=== PATIENT | female | born 1960 | race Caucasian/White ===

== ENCOUNTER 2017-08-17 15:49 | Observation (INO) ==
--- NOTE | 2017-08-17 17:58 | Internal Med History&Physical ---
Date of Encounter: 08/17/17 Time of Encounter: 17:55 Assessment and Plan (1) CHF (congestive heart failure) Current visit: Yes Status: Acute Patient has symptoms suggestive of congestive heart failure exertional shortness of breath PND leg edema with a high BNP will obtain 2-D echo and consult cardiology Qualifiers: Heart failure type: unspecified Heart failure chronicity: acute Qualified Code(s): I50.9 - Heart failure, unspecified (2) Diabetes 1.5, managed as type 2 Current visit: Yes Status: Chronic Chronic resume home medication and place on sliding scale regular likely not well-controlled patient has not been on medication since December last year (3) Chest pain Current visit: No Status: Acute Patient with recurrent chest pain for about 3 months suggestive of cardiac chest pain need further cardiac evaluation with trend troponin scheduled for nuclear stress test tomorrow and I will consult cardiology as well Qualifiers: Chest pain type: precordial pain Qualified Code(s): R07.2 - Precordial pain (4) Hyperglycemia Current visit: No Status: Acute Diabetes with hyperglycemia (5) Morbid obesity Current visit: Yes Status: Chronic Chronic due to excessive caloric intake (6) Peroneal DVT (deep venous thrombosis) Current visit: Yes Status: Chronic Patient had history of DVT but has not been taking her medication due to social and transpsortation isuues CTA of the chest shows no evidence of pulmonary embolism Qualifiers: Laterality: unspecified laterality Qualified Code(s): I82.499 - Acute embolism and thrombosis of other specified deep vein of unspecified lower extremity (7) HTN (hypertension) Current visit: Yes Status: Chronic Chronic resume home medication Qualifiers: Hypertension type: essential hypertension Qualified Code(s): I10 - Essential (primary) hypertension (8) Hyperlipidemia Current visit: Yes Status: Chronic Chronic and recheck in a.m. Qualifiers: Hyperlipidemia type: pure hypercholesterolemia Qualified Code(s): E78.00 - Pure hypercholesterolemia, unspecified; E78.0 - Pure hypercholesterolemia Internal Medicine - H&P: HPI Chief complaint: chest pain and sob Admitted From: Intrahospital Transfer Plans for Post Hospital Care: Home History of present illness: Ms. Mcclani is a 57 year old female Patient with history of CK D, LBBB, congestive heart failure, DVT pulmonary embolism in the past, morbid obesity, CAD, diabetes, GERD, high cholesterol and hypertension patient has not been taking her medication since December because she had difficulty with transportation has has not had medication refill. Patient having recurrent chest pain for about 3 months describes a tightness and pressure mostly with exertion also increased shortness of breath with exertion with some leg swelling patient was seen by primary physician yesterday with a left leg infection was sent to wound care and placed on Keflex and has some labs drawn patient was called back back call because apparently had troponin was elevated them to go to the emergency room she went to [facility] emergency room CTA was done that showed no evidence of a pulmonary embolism there was no pneumonia BNP was elevated at 677 chest x ray and cta was unremarkable patient was then transferred here for further cardiac evaluation. Patient has never had a cardiac catheter but she says had a stress test at [facility] about a year ago no carduac cath was done . [place] trop[place] was normal. Past Med Surg Social Fam HX - Past Medical History Medical history: arthritis, coronary artery disease, DVT, diabetes, GERD, hyperlipidemia, hypertension, pulmonary embolus, other Psychiatric history: anxiety - Past Surgical History Surgical History: cholecystectomy - Social History Smoking Status: Never smoker Smokeless Tobacco Status: No Alcohol use: none Drug use: none - Family History Father Hx Family Cancer: Yes Mother Living Status: Hx Family Respiratory Disorders: Yes Hx Family Cancer: Yes (breast) Internal Medicine - H&P: Meds Aspirin [Lo-Dose Aspirin EC] 81 mg PO DAILY 08/17/17 [History] Docusate [Colace] 100 mg PO DAILY 08/17/17 [History] Furosemide [Lasix] 20 mg PO DAILY 08/17/17 [History] Gabapentin [Neurontin] 300 mg PO TID 08/17/17 [History] Insulin ASPART [Novolog Flexpen] 10 unit SQ TID 08/17/17 [History] Insulin Glargine,Hum.rec.anlog [Lantus Solostar] 32 unit SQ HS 08/17/17 [History ] Lisinopril [Zestril] 20 mg PO DAILY 08/17/17 [History] Loratadine [Claritin] 10 mg PO DAILY 08/17/17 [History] Omeprazole [PriLOSEC] 20 mg PO DAILY 08/17/17 [History] Pravastatin Sodium [Pravachol] 40 mg PO DAILY 08/17/17 [History] Ranitidine HCl [Heartburn Relief] 150 mg PO DAILY 08/17/17 [History] Rivaroxaban [Xarelto] 15 mg PO 1700 08/17/17 [History] cephALEXin [Keflex] 500 mg PO QID 08/17/17 [History] metFORMIN [Glucophage] 500 mg PO TIDWM 08/17/17 [History] 3 Allergy/AdvReac Type Severity Reaction Status Date / Time No Known Allergies Allergy Verified 06/25/17 21:14 All Systems PM: A 10-system review of systems was performed and is negative for pertinent findings except as documented above in the HPI. - Eye Eye exam: Present: PERRL, conjuntiva pink, sclera anicteric Pupils: Present: PERRL - Neck Neck exam general surgery: Present: supple, trachea midline. Absent: lymphadenopathy - Respiratory Respiratory exam: Present: rales, rhonchi - Cardiovascular Cardiovascular exam: Present: RRR, systolic murmur - GI/Abdominal GI/Abdominal exam: Present: normal bowel sounds, soft, no peritoneal signs. Absent: distended, tenderness - Extremities Exam Extremities exam: Present: pedal edema
[2017-08-17] MEDS ORDERED: Naloxone 0.4 MG/ML INJ IVP PRN (18:18)
[2017-08-17] MEDS ORDERED: Acetaminophen 325 MG TABLET PO PRN (18:18)
[2017-08-17] MEDS ORDERED: Dextrose Gel 15 GM/37.5 ML TUBE PO PRN ×2 (18:22)
[2017-08-17] MEDS ORDERED: D5% in Water 1,000 ML IVC PRN (18:22)
[2017-08-17] MEDS ORDERED: *HR* Dextrose 50 % in Water (Syg) 50 ML SYRINGE IVP PRN (18:22)
[2017-08-17] MEDS: Insulin DETEMIR 100 UNIT/ML X5UNITS SQ SCH (21:00)
[2017-08-17] MEDS: Insulin LISPRO 300 UNITS/3 ML VIAL SQ SCH (21:00)
[2017-08-17] MEDS: traMADol 50 MG TABLET PO PRN (21:00)
[2017-08-17] MEDS: Furosemide 40 MG/4 ML VIAL IVP SCH (21:00)
[2017-08-17] MEDS: Gabapentin 300 MG CAPSULE PO SCH (21:00)
[2017-08-18] MEDS: Piperacillin/Tazobactam 3.375 GM in 0.9 % Sodium Chloride Mini Bag 100 ML IVPB SCH ×4 (00:18→23:46)
[2017-08-18 00:46] LABS: Hematocrit 41.6 % (35.3-44.9); Hemoglobin 12.7 g/dL (11.5-15.4); Mean Corpuscular HGB Conc 30.5 g/dL (31.6-35.5); Mean Corpuscular Hemoglobin 24.2 pg (28.0-33.3); Mean Corpuscular Volume 79.2 fL (83.0-100.0); Mean Platelet Volume 10.2 fL (9.4-12.4); Platelet Count 260 K/mcL (140-400); Red Blood Count 5.25 M/mcL (3.82-4.97); Red Cell Distribution Width 15.5 % (11.5-14.5)
[2017-08-18 01:08] LABS: Alanine Aminotransferase 8 Units/L (7-52); Albumin 3.2 g/dL (3.5-5.7); Albumin/Globulin Ratio 1.1 (1.1-2.2); Alkaline Phosphatase 90 Units/L (34-104); Aspartate Amino Transferase 10 Units/L (13-39); BUN/Creatinine Ratio 20 (6-26); Bilirubin,Total 0.6 mg/dL (0.3-1.0); Blood Urea Nitrogen 17 mg/dL (6-20); Carbon Dioxide 29 mEq/L (23-29); Chloride 101 mEq/L (98-107); Chol/HDL Ratio 4.1 (0-4.9); Cholesterol 159 mg/dL (< 200); Glucose 216 mg/dL (70-105); HDL Cholesterol 39 mg/dL (40-59); LDL Cholesterol,Calculated 92 mg/dL (0-99); Magnesium 1.7 mg/dL (1.6-2.6); Osmolality,Calculated 294 (280-300); Potassium 3.3 mEq/L (3.5-5.1); Sodium 138 mEq/L (136-145); Total Protein 6.2 g/dL (6.4-8.9); Triglycerides 139 mg/dL (< 150); eGFR For African Americans > 60 (> 60); eGFR For Non-African Americans > 60 (> 60)
[2017-08-18] MEDS ORDERED: Regadenoson 0.4 MG/5 ML SYRINGE IVP ONE (06:13)
[2017-08-18 08:26] LABS: Estimated Average Glucose 272 mg/dl; Hemoglobin A1C 11.1 %
[2017-08-18] MEDS ORDERED: Perflutren Lipid Microsphere 1.3 ML in 0.9 % Sodium Chloride 8.7 ML IVP ONE (08:35)
[2017-08-18] MEDS: Insulin LISPRO 300 UNITS/3 ML VIAL SQ SCH ×4 (09:32→21:52)
[2017-08-18] MEDS: Gabapentin 300 MG CAPSULE PO SCH ×3 (09:35→21:52)
[2017-08-18] MEDS: Loratadine 10 MG TABLET PO SCH (09:35)
[2017-08-18] MEDS: Lisinopril 20 MG TABLET PO SCH (09:36)
[2017-08-18] MEDS: Aspirin Enteric Coated 81 MG Tablet PO SCH (09:36)
[2017-08-18] MEDS: Famotidine 20 MG TABLET PO SCH (09:39)
[2017-08-18] MEDS: Furosemide 40 MG/4 ML VIAL IVP SCH ×2 (09:41→17:43)
--- NOTE | 2017-08-18 10:17 | Cardiology Consult Note ---
Date of Encounter: 08/18/17 Time of Encounter: 10:14 Assessment and Plan (1) Chest pain Current Visit: Yes Status: Acute Pt reports intermittent chest pain over past 3 months, worse on exertion. Troponin negative then 0.04, 0.05 x 2. Stress test was ordered, but cancelled by cardiology until echo results and records are received. Pt reports having an echo and LHC at [place] last year. Request records. LBBB on EKG--not new. Further recommendations to follow. Qualifiers: Chest pain type: unspecified Qualified Code(s): R07.9 - Chest pain, unspecified (2) CHF (congestive heart failure) Current Visit: Yes Status: Acute Pt reports hx of CHF--uncertain type. BNP 677. CXR no acute findings. Symptoms of worsening dyspnea and LE edema. Reports being out of Lasix from March until recently due to transportation issues. Also admits to excess fluid intake >2L/day. Agree with IV Lasix--40mg BID. Recommend strict I/Os, daily weights, Na and fluid restriction. K 3.3--replace. TTE pending. Requesting records from [place] as well. Qualifiers: Heart failure type: unspecified Heart failure chronicity: acute Qualified Code(s): I50.9 - Heart failure, unspecified (3) Elevated troponin Current Visit: Yes Status: Acute Troponins 0.04, 0.05 x 2 in setting of CHF. Suspect demand ischemia, nondiagnostic for ACS. TTE pending. Discussion w patient/family: The assessment and plan as outlined above was discussed with the patient and/or family members who expressed understanding and agreement. All questions were answered. Thank you for involving us in the care of your patient. Please call with any questions. I will discuss all the above with Dr. Rivera and make changes as necessary. History of Present Illness Consult date: 08/18/17 Requesting physician: Fidel Dong Consult reason: elevated troponin, chest pain, CHF Chief complaint: chest pain, dyspnea, LE edema History of present illness: Ms. Mcclain is a 57 year old female with PMH of CKD, LBBB, congestive heart failure (unclear type), DVT/PE in the past, morbid obesity, diabetes, GERD, HLD , HTN. Pt has not been taking her medications since December because she has difficulty with transportation. She presented with complaints of having recurrent chest pain for 3 months, intermittent, describes a tightness and pressure mostly with exertion. Reports increased shortness of breath with exertion, BLE edema and weight gain. BNP 677. Negative CTA. Per pt, she had an echo and LHC at [place] last year. She reports knowing she has CHF, but unsure of type or EF. Troponin 0.04, 0.05 x 2. TTE pending. Cardiology consulted for further recommendations. Past Med Surg Social Fam HX - Past Medical History Medical history: arthritis, coronary artery disease, DVT, diabetes, GERD, hyperlipidemia, hypertension, pulmonary embolus, other Psychiatric history: anxiety - Past Surgical History Surgical History: cholecystectomy - Social History Smoking Status: Never smoker Smokeless Tobacco Status: No Alcohol use: none Drug use: none - Family History Father Hx Family Cancer: Yes Mother Living Status: Hx Family Respiratory Disorders: Yes Hx Family Cancer: Yes (breast) Medications and Allergies Aspirin [Lo-Dose Aspirin EC] 81 mg PO DAILY 08/17/17 [History] Docusate [Colace] 100 mg PO DAILY 08/17/17 [History] Furosemide [Lasix] 20 mg PO DAILY 08/17/17 [History] Gabapentin [Neurontin] 300 mg PO TID 08/17/17 [History] Insulin ASPART [Novolog Flexpen] 10 unit SQ TID 08/17/17 [History] Insulin Glargine,Hum.rec.anlog [Lantus Solostar] 15 unit SQ HS 08/17/17 [History ] Lisinopril [Zestril] 20 mg PO DAILY 08/17/17 [History] Loratadine [Claritin] 10 mg PO DAILY 08/17/17 [History] Omeprazole [PriLOSEC] 20 mg PO DAILY 08/17/17 [History] Pravastatin Sodium [Pravachol] 40 mg PO DAILY 08/17/17 [History] Ranitidine HCl [Heartburn Relief] 150 mg PO DAILY 08/17/17 [History] Rivaroxaban [Xarelto] 15 mg PO 1700 08/17/17 [History] cephALEXin [Keflex] 500 mg PO QID 08/17/17 [History] Metformin HCl [Metformin HCl ER] 1,500 mg PO DAILY 08/18/17 [History] Polyethylene Glycol 3350 [MiraLAX Powder Bulk 17.9 Oz] 1 scoop PO DAILY [History] 3 Allergy/AdvReac Type Severity Reaction Status Date / Time No Known Allergies Allergy Verified 06/25/17 21:14 All Systems Review: The remainder of the systems were reviewed and are negative - Constitutional Constitutional: weight gain - Cardiovascular Cardiovascular: as per HPI, chest pain at rest, chest pain with exertion, dyspnea at rest, dyspnea on exertion, leg edema - Respiratory Respiratory: dyspnea Physical Examination Vital Signs, Last 4 Hours Temp Pulse Resp BP Pulse Ox 08/18/17 06:42 97.8 F 63 16 129/80 95 Vital Signs Temp Pulse Resp BP Pulse Ox 08/18/17 06:42 97.8 F 63 16 129/80 95 08/18/17 04:06 97.7 F 81 16 141/87 95 08/18/17 00:00 97.8 F 66 16 129/70 96 08/17/17 20:53 98.4 F 79 16 177/117 95 08/17/17 20:45 95 Intake and Output 08/17/17 08/18/17 08/18/17 23:59 07:59 15:59 Intake Total 240 / 240 100 / 100 Balance 240 / 240 100 / 100 Intake: IV Fluids 100 / 100 Zosyn 3.375 GM In 0.9 % Sodium 100 / 100 Chloride (Mini-Bag +) 100 ML @ 25 mls/hr IVPB Q8HR [facility] Rx#: [id number] Oral 240 / 240 Other: Meal Dinner Percent of Meal Consumed 100% Weight 151.046 kg Blood Glucose* 319 120 General: Conversant, No Apparent Distress HEENT: Atraumatic, Normocephaly, Mucus Membranes Moist Neck: No JVD, Normal carotid pulses Cardiac: Reg Rate and Rhythm, No Murmur Lungs: Other (diminished) Neuro: Alert and responsive, No focal deficits noted Abdomen: Soft, Non-Tender Skin: No rashes noted on visualized skin Musculoskeletal: No Chest Wall Tenderness Extremities: Other (mild BLE edema) Results 08/18/17 00:11 08/18/17 00:11 Lab Results 08/17/17 08/18/17 08/18/17 19:17 00:11 00:11 WBC 5.4 Hgb 12.7 Hct 41.6 Plt Count 260 Sodium Potassium Chloride Carbon Dioxide BUN Creatinine Glucose Calcium Magnesium Total Bilirubin AST ALT Alkaline Phosphatase Troponin I 0.04 H* 0.05 H* 08/18/17 08/18/17 00:11 06:20 WBC Hgb Hct Plt Count Sodium 138 Potassium 3.3 L Chloride 101 Carbon Dioxide 29 BUN 17 Creatinine 0.85 Glucose 216 H Calcium 9.0 Magnesium 1.7 Total Bilirubin 0.6 AST 10 L ALT 8 Alkaline Phosphatase 90 Troponin I 0.05 H* Short CBC 08/18/17 Range/Units 00:11 WBC 5.4 (4.3-11.1) K/mcL Hgb 12.7 (11.5-15.4) g/dL Hct 41.6 (35.3-44.9) % Plt Count 260 (140-400) K/mcL BMP 08/18/17 Range/Units 00:11 Sodium 138 (136-145) mEq/L Potassium 3.3 L (3.5-5.1) mEq/L Chloride 101 (98-107) mEq/L Carbon Dioxide 29 (23-29) mEq/L BUN 17 (6-20) mg/dL Creatinine 0.85 (0.60-1.20) mg/dL Glucose 216 H (70-105) mg/dL Calcium 9.0 (8.6-10.3) mg/dL Cardiac Enzymes 08/18/17 08/18/17 08/17/17 Range/Units 06:20 00:11 19:17 Troponin I 0.05 H* 0.05 H* 0.04 H* (< 0.04) ng/mL Liver Function 08/18/17 Range/Units 00:11 Total Bilirubin 0.6 (0.3-1.0) mg/dL AST 10 L (13-39) Units/L ALT 8 (7-52) Units/L Alkaline Phosphatase 90 (34-104) Units/L Albumin 3.2 L (3.5-5.7) g/dL Active Medications Acetaminophen (Tylenol) 650 mg PO Q6HR PRN PRN Reason: Mild Pain/Fever Stop: 02/16/18 18:19 Aspirin (Aspirin Ec) 81 mg PO DAILY [facility] Stop: 02/17/18 09:01 Last Admin: 08/18/17 09:36 Dose: 81 mg Atorvastatin Calcium (Lipitor) 10 mg PO DAILY [facility] Stop: 02/17/18 09:01 Last Admin: 08/18/17 09:38 Dose: 10 mg Dextrose/Water (Dextrose 50% (Syg)) 25 ml IVP AD PRN PRN Reason: Hypoglycemia Stop: 02/16/18 18:23 Docusate Sodium (Colace) 100 mg PO DAILY [facility] PRN Reason: Protocol Stop: 02/17/18 09:01 Last Admin: 08/18/17 09:38 Dose: 100 mg Famotidine (Pepcid) 20 mg PO DAILY [facility] Stop: 02/17/18 09:01 Last Admin: 08/18/17 09:39 Dose: 20 mg Furosemide (Lasix) 40 mg IVP BIDDIURETIC [facility] Stop: 02/16/18 21:01 Last Admin: 08/18/17 09:41 Dose: 40 mg Gabapentin (Neurontin) 300 mg PO TID [facility] Stop: 02/16/18 21:01 Last Admin: 08/18/17 09:35 Dose: 300 mg Glucagon (Glucagen) 1 mg IM ONCE PRN PRN Reason: Hypoglycemia Stop: 02/16/18 18:23 Glucose (Gluctose) 15 gm PO ONCE PRN PRN Reason: Hypoglycemia Stop: 02/16/18 18:23 Glucose (Gluctose) 30 gm PO ONCE PRN PRN Reason: Hypoglycemia Stop: 02/16/18 18:23 Dextrose (Dextrose 5%) 1,000 mls @ 100 mls/hr IVC .Q10H PRN PRN Reason: HYPOGLYCEMIA Stop: 02/16/18 18:23 Piperacillin Sod/Tazobactam (Sod 3.375 gm/ Sodium Chloride) 100 mls @ 25 mls/ hr IVPB Q8HR [facility] Stop: 02/17/18 00:01 Last Admin: 08/18/17 09:39 Dose: 25 mls/hr Insulin Detemir (Levemir) 32 unit SQ HS [facility] Stop: 02/16/18 21:01 Last Admin: 08/17/17 21:00 Dose: 32 unit Insulin Human Lispro (Humalog) 0 units SQ HS [facility] PRN Reason: Protocol Stop: 02/16/18 21:01 Last Admin: 08/17/17 21:00 Dose: 6 units Insulin Human Lispro (Humalog) 0 units SQ TIDAC [facility] PRN Reason: Protocol Stop: 02/17/18 07:31 Last Admin: 08/18/17 09:32 Dose: Not Given Lisinopril (Zestril) 20 mg PO DAILY [facility] PRN Reason: Protocol Stop: 02/17/18 09:01 Last Admin: 08/18/17 09:36 Dose: 20 mg Loratadine (Claritin) 10 mg PO DAILY [facility] Stop: 02/17/18 09:01 Last Admin: 08/18/17 09:35 Dose: 10 mg Naloxone HCl (Narcan) 0.4 mg IVP Q2MIN PRN PRN Reason: SEE COMMENTS Stop: 02/16/18 18:19 Omeprazole (Prilosec) 20 mg PO DAILY@0730 [facility] PRN Reason: Protocol Stop: 02/17/18 07:31 Last Admin: 08/18/17 09:36 Dose: 20 mg Rivaroxaban (Xarelto) 15 mg PO 1700 [facility] Stop: 02/17/18 17:01 Tramadol HCl (Ultram) 50 mg PO Q6HR PRN PRN Reason: Moderate Pain Stop: 02/16/18 18:19 Last Admin: 08/17/17 21:00 Dose: 50 mg - Imaging and Cardiology Echo: pending - EKG Interpretation EKG results cardiology: personally reviewed (SR, LBBB), other (12 hr tele AVG HR 82, SR) Consult Discharge Plan - Plan Referrals: Lina Paulino, [employer] [Primary Care Provider] -
--- NOTE | 2017-08-18 13:58 | Event Note ---
Date of Encounter: 08/18/17 Time of Encounter: 13:55 - Cardiology Event Note Echo resulted-- LVEF 20-25%. Mildly dilated left ventricle. Mild concentric left ventricular hypertrophy. There is no LV thrombus. Mildly dilated right ventricle. Mild right ventricular hypokinesis. Mild tricuspid regurgitation. Moderate pulmonary hypertension. Estimated RVSP is 50 mmHg. ICMP vs NICMP. [place] records received--Echo 05/2016 EF 25-30%. Pt had previously reported having a LHC. On record review had aortography with runoff. PET stress test was ordered for her CMP, but results were not on faxed documents. Results requested. Reduced EF is not a new finding, but does not appear pt has had a LHC to evaluate coronary arteries. Given presentation with chest pain over past 3 months, worse on exertion and borderline troponins, recommend proceeding with LHC tomorrow. R/B/A discussed and pt agrees to proceed in AM.
[2017-08-18] MEDS: Miconazole 2% ointment 114 GM TUBE TP SCH (16:05)
[2017-08-18] MEDS: Metoprolol XL (24 HR) Succ 25 MG TAB.ER.24H PO SCH (16:07)
[2017-08-18] MEDS ORDERED: *HR* Rivaroxaban 15 MG TABLET PO SCH (17:00)
--- NOTE | 2017-08-18 17:34 | Internal Med Progress Note ---
Date of Encounter: 08/18/17 Time of Encounter: 17:12 - Assessment and plan (1) Chest pain Current Visit: Yes Status: Acute Assessment and plan: Cardiology consult and left heart catheter planned in a.m. Qualifiers: Chest pain type: unspecified Qualified Code(s): R07.9 - Chest pain, unspecified (2) Elevated troponin Current Visit: Yes Status: Acute Assessment and plan: Troponin 0.04 and 0.05 times 2 Cardiology consult Obtained records from [facility]. Left heart cath in the a.m. (3) Diabetes 1.5, managed as type 2 Current Visit: Yes Status: Chronic Assessment and plan: Place on sliding scale regular insulin before meals and at bedtime. Patient has not been on medication since December 2016 per her report. (4) HTN (hypertension) Current Visit: Yes Status: Chronic Assessment and plan: Continue home medications Qualifiers: Hypertension type: essential hypertension Qualified Code(s): I10 - Essential (primary) hypertension (5) Hyperlipidemia Current Visit: Yes Status: Chronic Assessment and plan: LDL 92 VLDL 28 HDL 39 triglycerides 139 total cholesterol 159 Continue statin Qualifiers: Hyperlipidemia type: pure hypercholesterolemia Qualified Code(s): E78.00 - Pure hypercholesterolemia, unspecified; E78.0 - Pure hypercholesterolemia (6) Morbid obesity Current Visit: Yes Status: Chronic (7) Peroneal DVT (deep venous thrombosis) Current Visit: Yes Status: Chronic Assessment and plan: Patient with history of DVT but has not been taking her medication secondary to social and transportation issues CTA of the chest showed no evidence of pulmonary embolism Qualifiers: Laterality: unspecified laterality Qualified Code(s): I82.499 - Acute embolism and thrombosis of other specified deep vein of unspecified lower extremity (8) Diastolic CHF, chronic Current Visit: Yes Status: Acute Assessment and plan: LVEF 20-25%. Mildly dilated left ventricle. Mild concentric left ventricular hypertrophy and intermediate diastolic function. Atypical septal motion consistent with bundle branch block. There is no LV thrombus. Mildly dilated right ventricle. Mild right ventricular hypokinesis mild tricuspid regurg. Moderate pulmonary hypertension. Estimated RVSP is 50 mmHg. Cardiology service is aware and are on consult. Daily weights Intake and output (9) DVT prophylaxis Current Visit: Yes Status: Acute Assessment and plan: Heparin subcutaneous - Subjective Interval history: Patient sitting up in the bed in no distress. She states her chest pain has resolved. Cardiology was in and spoke to her about the plan of care and she will have a left heart cath in the a.m. and she is in agreement. She has no questions at this time. Denies shortness of breath, fever, chills, abdominal pain. She does have a wound on her right lower extremity is covered with a dry dressing. She has venous stasis changes to both lower extremities as well as some chronic edema. - Constitutional Vitals: Temp Pulse Resp BP Pulse Ox 99.0 F 86 18 134/87 95 08/18/17 15:49 08/18/17 15:49 08/18/17 15:49 08/18/17 15:49 08/18/17 15:49 General appearance: Present: cooperative, A&O X 3, morbidly obese, pleasant, answers questions appropriately - Head Head exam: Present: atraumatic, normocephalic - Eye Eye exam: Present: PERRL, conjuntiva pink, sclera anicteric Pupils: Present: PERRL - Neck Neck exam general surgery: Present: supple, trachea midline. Absent: lymphadenopathy - Respiratory Respiratory exam: Present: decreased breath sounds, CTAB. Absent: accessory muscle use, rales, rhonchi, wheezes - Cardiovascular Cardiovascular exam: Present: RRR, +S1, +S2, systolic murmur. Absent: diastolic murmur, gallop, rubs - GI/Abdominal GI/Abdominal exam: Present: normal bowel sounds, soft, no peritoneal signs. Absent: distended, tenderness - Extremities Exam Extremities exam: Present: pedal edema, warm, radial pulses palpable and symmetrical. Absent: calf tenderness, cyanotic - Neurological Exam Neurological exam: Present: alert, CN II-XII intact, oriented X3, no focal deficits. Absent: pronater drift, facial droop, speech deficit - Skin Skin exam: Present: dry, normal color, warm Additional comments: Venous stasis changes in lower extremities and wound to right lower extremity Internal Medicine: Result - Labs CBC & Chem 7: 08/18/17 00:11 08/18/17 00:11 Labs: Short CBC 08/18/17 Range/Units 00:11 WBC 5.4 (4.3-11.1) K/mcL Hgb 12.7 (11.5-15.4) g/dL Hct 41.6 (35.3-44.9) % Plt Count 260 (140-400) K/mcL BMP 08/18/17 00:11 Sodium 138 Potassium 3.3 L Chloride 101 Carbon Dioxide 29 BUN 17 Creatinine 0.85 Glucose 216 H Calcium 9.0 Cardiac Enzymes 08/17/17 08/18/17 08/18/17 Range/Units 19:17 00:11 06:20 Troponin I 0.04 H* 0.05 H* 0.05 H* (< 0.04) ng/mL Liver Function 08/18/17 Range/Units 00:11 Total Bilirubin 0.6 (0.3-1.0) mg/dL AST 10 L (13-39) Units/L ALT 8 (7-52) Units/L Alkaline Phosphatase 90 (34-104) Units/L Albumin 3.2 L (3.5-5.7) g/dL - Impressions Impressions Echocardiogram 08/18/17 18:22 Impressions: LVEF 20-25%. Mildly dilated left ventricle. Mild concentric left ventricular hypertrophy. Indeterminate diastolic function. Atypical septal motion consistent with bundle branch block. There is no LV thrombus. Mildly dilated right ventricle. Mild right ventricular hypokinesis. Mild tricuspid regurgitation. Moderate pulmonary hypertension. Estimated RVSP is 50 mmHg. Cardiology service is aware; spoke with Maxi Toledo CNP. Left Ventricular Wall Motion: Rest Echo Findings The apex, apical inferior, mid inferior, basal inferior, apical anterior, mid anterior, basal anterior, apical septal, mid inferior septal, basal inferior septal, apical lateral, mid anterior lateral, basal anterior lateral, mid anterior septal, mid inferior lateral, basal anterior septal and basal inferior lateral swan were hypokinetic. Findings: Study Quality * Technically adequate exam. ECG Findings * Sinus rhythm with BBB. Left Ventricle * LVEF 20-25%. * Mildly dilated left ventricle. * Mild concentric left ventricular hypertrophy. * Indeterminate diastolic function. * Atypical septal motion consistent with bundle branch block. * There is no LV thrombus. Right Ventricle * Mildly dilated right ventricle. * Mild right ventricular hypokinesis. Left Atrium * Moderate to severely dilated left atrium. Right Atrium * Moderately dilated right atrium. Interatrial Septum * Interatrial septum not well evaluated. Aortic Valve * Trileaflet aortic valve. * Mildly sclerotic aortic valve leaflets. * Trace aortic regurgitation. * No aortic stenosis. Mitral Valve * Moderate mitral annular calcification * Mildly thickened mitral valve leaflets. * No mitral regurgitation. * No mitral stenosis. Tricuspid Valve * Normal tricuspid valve structure. * Mild tricuspid regurgitation. * Moderate pulmonary hypertension. * Estimated RVSP is 50 mmHg. * Estimated RA pressure is 5 mmHg. Pulmonic Valve * Normal pulmonic valve structure and function. * Trace pulmonic regurgitation. Aorta * Normally sized aortic root. Pericardium * The pericardium appears normal. IVC * Normal IVC dimensions and inspiratory collapse. Pulmonary Artery * Normal visualized portions of the main pulmonary artery. Consult Discharge Plan - Plan Referrals: Lina Paulino CNP [Primary Care Provider] -
[2017-08-18] MEDS: *HR* Heparin 5,000 UNIT/ML VIAL SQ SCH (18:01)
[2017-08-18] MEDS: traMADol 50 MG TABLET PO PRN (21:52)
[2017-08-18] MEDS: Insulin DETEMIR 100 UNIT/ML X5UNITS SQ SCH (21:53)
[2017-08-19] MEDS: *HR* Heparin 5,000 UNIT/ML VIAL SQ SCH ×2 (05:43→17:18)
[2017-08-19] MEDS: Insulin LISPRO 300 UNITS/3 ML VIAL SQ SCH ×3 (08:15→17:17)
[2017-08-19] MEDS: Piperacillin/Tazobactam 3.375 GM in 0.9 % Sodium Chloride Mini Bag 100 ML IVPB SCH ×2 (08:26→17:18)
[2017-08-19] MEDS: Miconazole 2% ointment 114 GM TUBE TP SCH (08:27)
[2017-08-19] MEDS: Lisinopril 20 MG TABLET PO SCH (08:27)
[2017-08-19] MEDS: Metoprolol XL (24 HR) Succ 25 MG TAB.ER.24H PO SCH (08:27)
[2017-08-19] MEDS: Furosemide 40 MG/4 ML VIAL IVP SCH ×2 (08:27→17:17)
[2017-08-19] MEDS: Loratadine 10 MG TABLET PO SCH (08:27)
[2017-08-19] MEDS: Gabapentin 300 MG CAPSULE PO SCH ×2 (08:27→17:17)
[2017-08-19] MEDS: Famotidine 20 MG TABLET PO SCH (08:27)
[2017-08-19] MEDS: Aspirin Enteric Coated 81 MG Tablet PO SCH (08:27)
[2017-08-19 09:36] LABS: Basophils # 0.1 K/mcL (0.0-0.2); Basophils % 1.1 %; Eosinophils # 0.4 K/mcL (0.0-0.6); Eosinophils % 7.6 %; Hematocrit 45.5 % (35.3-44.9); Hemoglobin 13.6 g/dL (11.5-15.4); Immature Granulocytes % 0.5 % (0-4); Lymphocytes # 1.8 K/mcL (0.6-4.6); Lymphocytes % 31.3 %; Mean Corpuscular HGB Conc 29.9 g/dL (31.6-35.5); Mean Corpuscular Hemoglobin 23.9 pg (28.0-33.3); Mean Corpuscular Volume 80.1 fL (83.0-100.0); Mean Platelet Volume 9.5 fL (9.4-12.4); Monocytes # 0.5 K/mcL (0.0-1.3); Neutrophils # 2.9 K/mcL (1.6-8.9); Platelet Count 279 K/mcL (140-400); Red Blood Count 5.68 M/mcL (3.82-4.97); Red Cell Distribution Width 15.6 % (11.5-14.5); Segmented Neutrophils % 50.5 %
[2017-08-19 09:57] LABS: BUN/Creatinine Ratio 17 (6-26); Blood Urea Nitrogen 18 mg/dL (6-20); Calcium 9.1 mg/dL (8.6-10.3); Carbon Dioxide 29 mEq/L (23-29); Chloride 103 mEq/L (98-107); Glucose 149 mg/dL (70-105); Osmolality,Calculated 295 (280-300); Potassium 3.7 mEq/L (3.5-5.1); Sodium 140 mEq/L (136-145); eGFR For African Americans > 60 (> 60); eGFR For Non-African Americans 54 (> 60)
[2017-08-19] MEDS ORDERED: Heparin 1,000 UNITS/500 mL 500 ML ONE (11:59)
[2017-08-19] MEDS ORDERED: ISOVUE-370 200 ML INFUS..BTL IV ONE (11:59)
[2017-08-19] MEDS ORDERED: 0.9 % Sodium Chloride 1,000 ML ONE ×2 (11:59→13:43)
[2017-08-19] MEDS ORDERED: *HR* Heparin 10,000 UNIT/10 ML VIAL ONE (11:59)
[2017-08-19] MEDS ORDERED: Nitroglycerin 1,000 MCG/10 ML VIAL IV ONE (12:04)
--- NOTE | 2017-08-19 13:42 | Pre-Sedation Evaluation ---
Pre-sedation evaluation - Pre-sedation checklist Date of procedure: 08/19/17 Procedure: left heart cath Recent Vitals: Last Vital Signs Temp 97.7 F 08/19/17 11:00 Pulse 79 08/19/17 11:00 Resp 18 08/19/17 11:00 BP 145/78 08/19/17 11:00 Pulse Ox 93 08/19/17 11:00 H&P (including ROS) documented in medical record: Yes Previous reaction to sedatives/anesthetics: No Dietary Status: NPO after Midnight Airway Assessment: Patient can open mouth completely, TMJ function normal Dentition: No loose teeth or bridges Possible difficult airway: No ASA Classification *see protocol: CLASS III-Severe systemic disease Plan of Care: Pt appropriate candidate for procedure/moderate/conscious sedation , Risks/benefits of procedure/sedation discussed w/ patient/family, If not NPO; Risk of intake outweiged by necessity to perform procedure
[2017-08-19] MEDS ORDERED: *HR* Midazolam HCl 2 MG/2 ML VIAL ONE (13:47)
[2017-08-19] MEDS ORDERED: 0.9 % Sodium Chloride 1,000 ML IVC SCH (14:30)
--- NOTE | 2017-08-19 15:10 | Invasive Diagnostic Lab Proc ---
Name: Ora Mcclain Date of Study: 08/19/2017 Date: 1960 Ht: 66.9in Medical Record#: [id number] Age: 57 Wt: 332.90lb Gender: Female BSA: 2.51 Order #: [id number] BMI: 52.25 Physicians Procedure Physician: Bala Hernandez DO Referring MD: Referring MD: Staff Name Position Time In Sites, Hien RT (R) Monitor 01:48 PM Fer Briseno RT (R) Scrub 01:48 PM Antonio Hernandez RN Overcoil Stepper 01:48 PM Pito Rivera MD 02:21 PM Indications Indication Cardiomyopathy Procedures Performed Procedure L HRT ARTERY/VENTRICLE ANGIO Pre-Procedure Checklist Informed consent is complete signed and on chart. H&P is on chart. ID band is on and ID verified with patient. Patient NPO for procedure The procedure was described for the patient and questions were answered. Blood Pressure: 120/63 ECG is on chart. Rhythm: NSR Plan of Care Patient will tolerate the procedure without complications. Adequate level of comfort will be maintained. Hemodynamics will remain stable Patient will recover from procedure without complications. Respiratory function will be maintained. Cardiac rhythm will remain stable. Patient temperature will be maintained. Patient and/or family have verbalized understanding of the procedure. Patient Education Chief Complaint/Reason for Test: Cardiac Cath Developmental Category: Adult (18-64 years) Developmentally Appropriate for Age: Yes Learning Barriers: None Education Needs: Procedure Education Method: Verbal Information Taught: Cardiac Cath Educational Evaluation: Able to repeat information Intravenous Access Time IV Size Location DC'd Fluid/Drip Rate Units RN 10:04 AM 18g 1 1/4" Patent On Arrival Lt Antecubital 0.9NaCl 25 ml/hr Antonio Hernandez RN 10:04 AM 20g 1 1/4" Patent On Arrival Rt Hand Antonio Hernandez RN Allergies NKDA Vital Signs Time BP (mmHg) HR (bpm) O2 Sat. RR (bpm) LOC 10:05 AM 120 / 63 68 94 % 16 5 = Fully awake and oriented or at pre-proc level 01:49 PM / % 5 = Fully awake and oriented or at pre-proc level 02:04 PM / % 4 = Oriented but drowsy 02:19 PM / % 5 = Fully awake and oriented or at pre-proc level 01:48 PM 182 / 119 82 98 % 16 01:50 PM 151 / 110 80 73 % 26 01:55 PM 163 / 97 79 96 % 16 02:00 PM 170 / 100 81 100 % 17 02:05 PM 176 / 102 86 99 % 23 02:10 PM 178 / 105 88 99 % 16 02:15 PM 179 / 109 86 100 % 20 02:20 PM 181 / 118 86 98 % 17 02:27 PM 169 / 118 86 100 % 27 02:31 PM 173 / 121 85 100 % 31 Procedural Medications Time Medication Dose Units Method Given By 01:48 PM Oxygen 2 L/min nasal cannula Antonio Hernandez RN 01:50 PM Versed 2 mg Intravenous Antonio Hernandez RN 01:58 PM Lidocaine 2% 10 ml Subcutaneous Bala Hernandez DO ASA Classification: CLASS II- Mild systemic disease (i.e. well-controlled diabetes, hypertension, asthma, cigarette smoking) Lady Score Preprocedure Postprocedure Activity 2- Moves 4 extremities sustained head lift Activity 2- Moves 4 extremities sustained head lift Circulation 2- SBP +/= 20 points of pre-anesthetic level Circulation 2- SBP +/= 20 points of pre-anesthetic level Consciousness 2- Awake and alert oriented x 3 Consciousness 2- Awake and alert oriented x 3 O2 Saturation 2- Able to maintain O2 satruation of 92% on room air O2 Saturation 2- Able to maintain O2 satruation of 92% on room air Respiratory 2- Able to deep breathe and cough well Respiratory 2- Able to deep breathe and cough well Total Score 10 Total Score 10 Contrast Agent: Isovue Diagnostic Contrast: 90 ml Total Contrast: 90 ml Fluoro Dose: 676 mGy Procedure Log Time Note Enter By 01:40 PM CathStat 01:46 PM Vitals capture started with the following parameters, Patient=Adult, Interval=5 min, Initial Tdbxlnrb=072 mmHg, Deflation Rate=5 mmHg, Cuff placed on Right Arm 01:46 PM Recorded ECG: HR=83 Condition=Condition 1 01:48 PM Pito Rivera MD Position: Time in: 13:48 tsites 01:48 PM HR=82 bpm, TZVQ=830/119 mmhg, SpO2=98.0 %, Resp=16 B/min 01:48 PM Pt arrived to wastewater analyst lab analyst 2 at 13:48 tsites 01:48 PM Hien Lipscomb RT (R) Position: Monitor Time in: 13:48 tsites 01:48 PM Fer Briseno (R) Position: Scrub Time in: 13:48 tsites 01:48 PM Antonio Hernandez RN Position: Overcoil Stepper Time in: 13:48 tsites 01:48 PM Patient charges- Angio tray pack, Navilyst 3mm J, Pulse Oximetry and ACIST tubing and transducer tsites 01:48 PM Case Delayed No tsites :48 PM Physician arrived 13:48 tsites :48 PM Meet and greet completed tsites :48 PM Sign in performed according to hospital policy. tsites 01:48 PM Procedure start 13:48 tsites :48 PM Hair removed from procedure site in holding area using clippers. Bilateral groin prepped with Chloraprep by Fer Briseno (R), then patient was draped. Skin intact. tsites :49 PM Time: 13:48 Oxygen on at 2 L/min per nasal cannula by Antonio Hernandez RN tsites :49 PM Time: 13:49 Patient comfortable and pain free: Yes tsites :49 PM Time: 13:49LOC: 5 = Fully awake and oriented or at pre-proc level tsites 01:49 PM Clinical Presentation: Non-STEMI tsites 01:50 PM Vitals capture stopped. 01:50 PM Vitals capture started with the following parameters, Patient=Adult, Interval=5 min, Initial Oneuqhkd=247 mmHg, Deflation Rate=5 mmHg, Cuff placed on Right Arm 01:50 PM HR=80 bpm, FYQZ=971/110 mmhg, SpO2=73.0 %, Resp=26 B/min 01:50 PM Time: 13:50 Versed 2 mg Intravenous Given by Antonio Hernandez RN tsites 01:52 PM Pressure channel 2 zeroed. 01:55 PM HR=79 bpm, XYMS=722/97 mmhg, SpO2=96.0 %, Resp=16 B/min 01:58 PM Time out performed according to hospital policy tsites 01:59 PM Time: 13:58 10 ml Lidocaine 2% to right groin Subcutaneous Given by Bala Hernandez DO tsites 02:00 PM HR=81 bpm, VRPI=861/100 mmhg, FjV7=729.0 %, Resp=17 B/min 02:01 PM Micro-Introducer Kit utilized for sheath placement tsites 02:01 PM Access obtained by percutaneous puncture. 6Fr 10cm Terumo Dilliner sheath placed in right Femoral artery. [id number] tsites 02:01 PM 5Fr FR 4 catheter inserted over the wire DN tsites 02:01 PM Catheter selectively placed in left ventricle tsites 02:01 PM Bolus angiogram of left Ventricle complete: hand injection tsites 02:02 PM Recorded Pressure: LV, HR=84, Condition=Condition 1 (Left Ventricle) LV 156/10/18 02:02 PM Recorded Pressure: LV, Ao, HR=85, Condition=Condition 1 (Left Ventricle) LV 152/12/23, (Aorta) Ao 141/84/109 02:03 PM RCA angiography performed in multiple views. tsites 02:03 PM Coronary Dominance: right tsites 02:03 PM Lesion found in Proximal RCA. Pre Stenosis: 40 Pre ISIDRO Flow: 2: Partial Flow/Perfusion (> 1 but < 3) tsites 02:03 PM wire reinserted catheter removed tsites 02:04 PM 5Fr FL 4 catheter inserted over the wire [facility] tsites 02:05 PM wire reinserted catheter removed tsites 02:05 PM 5Fr FL5 catheter inserted over the wire [id number] tsites 02:05 PM HR=86 bpm, FMTR=888/102 mmhg, SpO2=99.0 %, Resp=23 B/min 02:06 PM LCA angiography performed in multiple views. tsites 02:06 PM Recorded Pressure: Ao, HR=87, Condition=Condition 1 (Aorta) Ao 155/93/120 02:07 PM wire reinserted catheter removed tsites 02:08 PM 6Fr XB LAD 3.5 [place] Bright-Tip guide catheter was used to cannulate the PCI vessel successfully. reused? No tsites 02:08 PM LCA angiography performed in multiple views. tsites 02:09 PM wire reinserted catheter removed tsites 02:09 PM 5Fr AL2 catheter inserted over the wire [id number] tsites 02:10 PM HR=88 bpm, MKZO=043/105 mmhg, SpO2=99.0 %, Resp=16 B/min 02:11 PM Recorded Pressure: Ao, HR=89, Condition=Condition 1 (Aorta) Ao 145/70/104 02:13 PM LCA angiography performed in multiple views. tsites 02:13 PM Catheter removed tsites 02:13 PM Procedure completed at 14:13 tsites 02:13 PM Did you address ISIDRO flow and Dominance? Yes tsites 02:14 PM Sign out completed: Radiation Dose 676 mGy Fluoro Time: 4.2 Isovue 370 - 200ml contrast 90 ml given by Bala Hernandez DO. Complications: NoneCardiac Rehab Consult needed: NoConfirmed administered medications: Yes tsites 02:14 PM Isovue 370 - 200ml,1 Bottle(s) used. tsites 02:15 PM HR=86 bpm, GDJE=691/109 mmhg, YgZ1=728.0 %, Resp=20 B/min 02:19 PM Arterial sheath pulled using manual compression and V+ Pad for 15 minutes by Harsh Ham RN tsites 02:19 PM Time: 14:04 Patient comfortable and pain free: Yes tsites 02:19 PM Time: 14:04LOC: 4 = Oriented but drowsy tsites 02:20 PM HR=86 bpm, WPXP=735/118 mmhg, SpO2=98.0 %, Resp=17 B/min 02:24 PM Estimated Blood Loss: minimal tsites 02:24 PM Post ECG NSR tsites 02:26 PM Vitals capture started with the following parameters, Patient=Adult, Interval=5 min, Initial Httxojcx=405 mmHg, Deflation Rate=5 mmHg, Cuff placed on Right Arm 02:27 PM HR=86 bpm, HYUE=651/118 mmhg, BiP8=997.0 %, Resp=27 B/min 02:29 PM Post Blood Pressure 169/118 tsites 02:29 PM 14:29 Post Pulses Bilateral DP & PT 1+ tsites 02:29 PM Information taught Cardiac Cath and V+ Pad tsites 02:29 PM Education needs Procedure, Plan of Care, and Responsibilities of Patient in Care tsites 02:29 PM Learning barriers :None tsites 02:29 PM Education Methods Verbal tsites 02:29 PM Education evaluation Able to repeat information tsites 02:31 PM HR=85 bpm, DFEQ=290/121 mmhg, YvM4=874.0 %, Resp=31 B/min 02:33 PM Site status No bleeding/hematoma - Rt Groin as reported by Harsh Ham RN at 14:33 tsites 02:33 PM Opsite applied tsites 02:35 PM Time: 14:19LOC: 5 = Fully awake and oriented or at pre-proc level tsites 02:35 PM Time: 14:19 Patient comfortable and pain free: Yes tsites 02:35 PM Report given to joyce STEWART Pt taken to 3B Room #24. 14:35 tsites 02:36 PM Plavix, Effient or Brilinta given No tsites 02:36 PM Delay to floor No tsites 02:36 PM Patient out of room: 14:36 tsites 02:36 PM no family at this time tsites 02:36 PM Vitals capture stopped. Complications Complication None Hemodynamics Pressures Site Systolic/A Wave Diastolic/V Wave Mean LV 156 10 18 LV 152 12 23 AO 141 84 109 AO 155 93 120 AO 145 70 104 Post Procedure Information Blood Pressure: 169/118 mmHg Rhythm: NSR Post procedural instructions were given Closure Device Time Device Success/Fail 08/19/2017 2:37:00 PM V+Pad Successful Site Checks Time Location Status Staff Sheath In? Note 02:33 PM Rt Groin No bleeding/hematoma Harsh Ham RN Pulses Time Site Pre-Procedure Post-Procedure Note 08/19/2017 10:05:00 AM Bilateral DP & PT 2+ 2:29:00 PM Bilateral DP & PT 1+ Updated by Hien Lipscomb RT (R) on 08/19/2017 3:04:38 PM Hien Lipscomb RT electronically signed on 08/19/2017 3:05:06 PM with status of Final
[2017-08-19 16:31] VITALS: BP 138/82
--- NOTE | 2017-08-19 17:06 | Discharge Summary ---
- NOTES TO OUTPATIENT PROVIDER Notes to Outpatient Provider: pcp in one week, cardiology as directed Orders not resulted at time of discharge: Pending orders 08/19/17 09:38 CL Cardiac Catheterization [CL] Routine Date of Encounter: 08/19/17 Time of Encounter: 17:03 - Discharge Diagnosis (1) Chest pain Priority: Primary Status: Acute Qualifiers: Chest pain type: unspecified Qualified Code(s): R07.9 - Chest pain, unspecified (2) Elevated troponin Priority: Primary Status: Acute (3) Diabetes 1.5, managed as type 2 Priority: Primary Status: Chronic (4) HTN (hypertension) Priority: Primary Status: Chronic Qualifiers: Hypertension type: essential hypertension Qualified Code(s): I10 - Essential (primary) hypertension (5) Hyperlipidemia Priority: Primary Status: Chronic Qualifiers: Hyperlipidemia type: pure hypercholesterolemia Qualified Code(s): E78.00 - Pure hypercholesterolemia, unspecified; E78.0 - Pure hypercholesterolemia (6) Morbid obesity Priority: Primary Status: Chronic (7) Peroneal DVT (deep venous thrombosis) Priority: Primary Status: Chronic Qualifiers: Laterality: unspecified laterality Qualified Code(s): I82.499 - Acute embolism and thrombosis of other specified deep vein of unspecified lower extremity (8) Diastolic CHF, chronic Priority: Primary Status: Acute Hospital course: Ms. Mcclain is a 57 year old female with past medical history of chronic kidney disease, left bundle branch block, systolic congestive heart failure, DVT, pulmonary embolism, morbid obesity, CAD, diabetes mellitus type 2, GERD, high cholesterol and hypertension. She has not been taking her medication since December because she had difficulty with transportation and has not had any medication refills. She has had recurrent chest pain for about 3 months which she describes as tightness and pressure with exertion and increased shortness of breath with exertion. She also has some leg swelling. She was seen by her primary physician with a left leg cellulitis and was sent to wound care and placed on Keflex. She had lab work drawn there as well. She was called back because her troponin was elevated and she was instructed to go to the emergency room. She went to [facility] emergency room. A CTA was done that showed no evidence of pulmonary embolism. There was no pneumonia. BNP was elevated at 677, chest x-ray and CTA were unremarkable. Patient was then transferred here for further cardiac evaluation. She had a stress test at [facility] approximately a year ago but no cardiac catheterization was ever done. According to [place] record she had no previous ischemic workup. Troponin was negative at 0.04 and then elevated to 0.052. Stress test was ordered but canceled by cardiology until echo, echocardiogram results are reviewed and records from [place] were reviewed after reviewing those records it was determined that she would have a left heart cath which was completed today. The patient states that in the [place] ER they gave her prescriptions for all of her scheduled medications. She was instructed to get those filled and then follow-up with her primary care physician within the week. She does have a history of noncompliance. Discharge discussed with: patient, nurse - Time Spent with Patient Total time spent providing and/or coordinating discharge services: Less than 30 minutes - Discharge Medications Home Medications: Aspirin [Lo-Dose Aspirin EC] 81 mg PO DAILY 08/17/17 [History] Docusate [Colace] 100 mg PO DAILY 08/17/17 [History] Furosemide [Lasix] 20 mg PO DAILY 08/17/17 [History] Gabapentin [Neurontin] 300 mg PO TID 08/17/17 [History] Insulin ASPART [Novolog Flexpen] 10 unit SQ TID 08/17/17 [History] Insulin Glargine,Hum.rec.anlog [Lantus Solostar] 15 unit SQ HS 08/17/17 [History ] Lisinopril [Zestril] 20 mg PO DAILY 08/17/17 [History] Loratadine [Claritin] 10 mg PO DAILY 08/17/17 [History] Omeprazole [PriLOSEC] 20 mg PO DAILY 08/17/17 [History] Pravastatin Sodium [Pravachol] 40 mg PO DAILY 08/17/17 [History] Ranitidine HCl [Heartburn Relief] 150 mg PO DAILY 08/17/17 [History] Rivaroxaban [Xarelto] 15 mg PO 1700 08/17/17 [History] cephALEXin [Keflex] 500 mg PO QID 08/17/17 [History] Metformin HCl [Metformin HCl ER] 1,500 mg PO DAILY 08/18/17 [History] Polyethylene Glycol 3350 [MiraLAX Powder Bulk 17.9 Oz] 1 scoop PO DAILY [History] Allergies/Adverse Reactions: 3 Allergy/AdvReac Type Severity Reaction Status Date / Time No Known Allergies Allergy Verified 06/25/17 21:14 Date of admission: 08/17/17 17:06 Primary care physician: Lina Paulino CNP Consults: 08/17/17 18:23 Consult to Cardiology [CONS] Routine Comment: Consulting Provider: Cardiology Cynthia Reason for Consult: chest pain and chf Time Notified: 18:23 Call Completed: No 08/17/17 18:24 Consult to Wound Care [CONS] Routine Reason for Consult: left leg wound Time Notified: 18:25 Call Completed: No 08/18/17 19:03 Consult to Gang Head Saw Operator [CONS] Routine Reason for SW Consult: unable to afford medications, discharge planning Discharging clinician: Priscilla Coy Anticipated date of discharge: 08/19/17 - Constitutional Vitals: Temp Pulse Resp BP Pulse Ox 97.4 F L 81 16 138/82 100 08/19/17 15:02 08/19/17 16:30 08/19/17 16:30 08/19/17 16:30 08/19/17 16:30 General appearance: Present: cooperative, A&O X 3, morbidly obese, pleasant, answers questions appropriately - Head Head exam: Present: atraumatic, normocephalic - Eye Eye exam: Present: PERRL, conjuntiva pink, sclera anicteric Pupils: Present: PERRL - Neck Neck exam general surgery: Present: supple, trachea midline. Absent: lymphadenopathy - Respiratory Respiratory exam: Present: decreased breath sounds, CTAB. Absent: accessory muscle use, rales, rhonchi, wheezes - Cardiovascular Cardiovascular exam: Present: distant heart sounds, RRR, +S1, +S2. Absent: diastolic murmur, gallop, rubs, systolic murmur - GI/Abdominal GI/Abdominal exam: Present: normal bowel sounds, soft, no peritoneal signs. Absent: distended, tenderness - Extremities Exam Extremities exam: Present: pedal edema, warm, radial pulses palpable and symmetrical. Absent: calf tenderness, cyanotic Additional comments: Wound on right lower extremity. She was following at the wound center and will continue her Keflex on discharge - Neurological Exam Neurological exam: Present: alert, CN II-XII intact, oriented X3, no focal deficits. Absent: pronater drift, facial droop, speech deficit - Skin Skin exam: Present: dry, normal color, warm Additional comments: Vascular skin changes of lower extremities - Patient Status Disposition: Home, Self-Care Condition: Good Functional capacity at discharge: independent ambulation Overall status at discharge: patient is progressing back to baseline - Discharge Instructions Follow Up With: Lina Paulino CNP [Primary Care Provider] - (Lina Paulino's office will be calling you with an appointment, your doctor office is getting a new system so they were unable to schedule an appointment when we attempted to call. Thank you !!) - Diet and Activity Activity: resume usual activities as tolerated Diet: diabetic diet, low fat, low cholesterol, low salt diet
== END 2017-08-19 19:25 | disposition home or self-care (01) ==
LOC: 3BNU
PROVIDERS: ADMIT Internal Medicine Cardiovascular Disease; ATTEND Registered Nurse

== ENCOUNTER 2020-11-16 16:48 | Inpatient (IN) ==
[2020-11-16 17:38] LABS: Basophils % 0.5 %; Eosinophils # 0.2 K/mcL (0.0-0.6); Eosinophils % 3.1 %; Hematocrit 32.9 % (35.3-44.9); Hemoglobin 10.2 g/dL (11.5-15.4); Immature Granulocytes % 0.8 % (0-4); Lymphocytes # 1.7 K/mcL (0.6-4.6); Lymphocytes % 26.5 %; Mean Corpuscular Hemoglobin 24.7 pg (28.0-33.3); Mean Corpuscular Volume 79.7 fL (83.0-100.0); Mean Platelet Volume 8.9 fL (9.4-12.4); Monocytes # 0.4 K/mcL (0.0-1.3); Monocytes % 6.2 %; Neutrophils # 4.1 K/mcL (1.6-8.9); Platelet Count 229 K/mcL (140-400); Red Blood Count 4.13 M/mcL (3.82-4.97); Red Cell Distribution Width 16.3 % (11.5-14.5); Segmented Neutrophils % 62.9 %; White Blood Count 6.5 K/mcL (4.3-11.1)
[2020-11-16 18:02] LABS: BUN/Creatinine Ratio 20 (6-26); Blood Urea Nitrogen 21 mg/dL (8-23); Calcium 9.3 mg/dL (8.6-10.3); Carbon Dioxide 30 mEq/L (23-29); Chloride 104 mEq/L (98-107); Glucose 98 mg/dL (70-105); Osmolality,Calculated 299 (280-300); Potassium 3.9 mEq/L (3.5-5.1); Sodium 143 mEq/L (136-145); eGFR For African Americans > 60 (> 60); eGFR For Non-African Americans 54 (> 60)
[2020-11-16 18:09] LABS: Troponin I 0.04 ng/mL (< 0.04)
[2020-11-16] MEDS ORDERED: Aspirin 325 MG TABLET PO ONE (18:15)
[2020-11-16] MEDS ORDERED: Furosemide 40 MG/4 ML VIAL IVP ONE (18:15)
[2020-11-16] MEDS ORDERED: Isovue-370 500 ML BOTTLE IVP ONE (18:16)
[2020-11-16 18:27] LABS: Adenovirus Not Detected (Not Detect); Bordetella Pertussis Not Detected (Not Detect); Chlamydophila pneumoniae Not Detected (Not Detect); Coronavirus 229E Not Detected (Not Detect); Coronavirus HKU1 Not Detected (Not Detect); Coronavirus NL63 Not Detected (Not Detect); Coronavirus OC43 DETECTED (Not Detect); Human Metapneumovirus Not Detected (Not Detect); Human Rhinovirus/Enterovirus Not Detected (Not Detect); Influenza A Subtype 2009 H1 Not Detected (Not Detect); Influenza B Not Detected (Not Detect); Mycoplasma pneumoniae Not Detected (Not Detect); Parainfluenza Virus 1 Not Detected (Not Detect); Parainfluenza Virus 2 Not Detected (Not Detect); Parainfluenza Virus 3 Not Detected (Not Detect); Parainfluenza Virus 4 Not Detected (Not Detect); Respiratory Syncytial Virus Not Detected (Not Detect); SARS-CoV-2 Not Detected (Not Detect)
[2020-11-17] MEDS ORDERED: Acetaminophen 325 MG TABLET PO PRN
[2020-11-17] MEDS ORDERED: Naloxone 0.4 MG/ML INJ IVP PRN
[2020-11-17] MEDS ORDERED: Metoclopramide 10 MG/2 ML VIAL IVP PRN (00:06)
[2020-11-17] MEDS ORDERED: Perflutren Lipid Microsphere 1.3 ML in 0.9 % Sodium Chloride 8.7 ML IVP PRN (00:08)
[2020-11-17] MEDS: Nystatin POWDER 30 GM BOTTLE TP SCH ×4 (00:57→20:36)
[2020-11-17] MEDS ORDERED: *HR* Dextrose 50 % in Water (Vial) 50 ML VIAL IVP PRN (00:59)
[2020-11-17] MEDS ORDERED: D5% in Water 1,000 ML IVC PRN (00:59)
[2020-11-17] MEDS ORDERED: Dextrose Gel 15 GM/37.5 ML TUBE PO PRN ×2 (00:59)
[2020-11-17] MEDS ORDERED: Nitroglycerin 0.4 MG TAB.SUBL SL PRN (01:15)
[2020-11-17 01:33] LABS: Hemoglobin 9.9 g/dL (11.5-15.4); Mean Corpuscular Volume 79.9 fL (83.0-100.0); Mean Platelet Volume 8.8 fL (9.4-12.4); Platelet Count 214 K/mcL (140-400); Red Blood Count 4.13 M/mcL (3.82-4.97); Red Cell Distribution Width 16.5 % (11.5-14.5); White Blood Count 6.1 K/mcL (4.3-11.1)
[2020-11-17 01:41] LABS: INR 1.2; Prothrombin Time 13.9 Seconds (9.4-12.1)
[2020-11-17 01:44] LABS: Activated Partial Thrombo Time 30.7 Seconds (26.0-36.0)
[2020-11-17 01:51] LABS: BUN/Creatinine Ratio 20 (6-26); Blood Urea Nitrogen 20 mg/dL (8-23); Calcium 9.2 mg/dL (8.6-10.3); Carbon Dioxide 31 mEq/L (23-29); Chloride 103 mEq/L (98-107); Chol/HDL Ratio 3.6 (0-4.9); Cholesterol 120 mg/dL (< 200); Glucose 85 mg/dL (70-105); HDL Cholesterol 33 mg/dL (40-59); LDL Cholesterol,Calculated 56 mg/dL (< 100); Magnesium 1.9 mg/dL (1.6-2.6); Osmolality,Calculated 298 (280-300); Potassium 3.3 mEq/L (3.5-5.1); Sodium 143 mEq/L (136-145); Triglycerides 157 mg/dL (< 150); eGFR For African Americans > 60 (> 60); eGFR For Non-African Americans 56 (> 60)
[2020-11-17] MEDS: Levalbuterol Neb 1.25 MG/3 ML IH SCH ×5 (04:14→22:29)
[2020-11-17 05:58] LABS: Adenovirus F 40/41 PCR Not detected (Not detect); Astrovirus PCR Not detected (Not detect); C.difficile Toxin A/B Gene PCR Not detected (Not detect); Campylobacter by PCR Not detected (Not detect); Cryptosporidium by PCR Not detected (Not detect); Cyclospora cayetanensis PCR Not detected (Not detect); E. coli O157 by PCR Not detected (Not detect); Entamoeba histolytica PCR Not detected (Not detect); Enteroaggregative E.coli(EAEC) Not detected (Not detect); Enteropathogenic E.coli(EPEC) Not detected (Not detect); Enterotoxigenic E.coli (ETEC) DETECTED (Not detect); Giardia lamblia PCR Not detected (Not detect); Norovirus GI/GII PCR Not detected (Not detect); Plesiomonas shigelloides PCR Not detected (Not detect); Rotavirus A PCR Not detected (Not detect); Salmonella PCR Not detected (Not detect); Sapovirus PCR Not detected (Not detect); Shig/EnteroinvasiveE coli EIEC Not detected (Not detect); Shigalike tox-prod E coli STEC Not detected (Not detect); Vibrio PCR Not detected (Not detect); Vibrio cholerae PCR Not detected (Not detect); Yersinia enterocolitica PCR Not detected (Not detect)
[2020-11-17] MEDS: *HR* Rivaroxaban 10 MG TABLET PO SCH (06:44)
[2020-11-17 07:13] LABS: Estimated Average Glucose 134 mg/dl; Hemoglobin A1C 6.3 %
[2020-11-17] MEDS ORDERED: Furosemide 40 MG/4 ML VIAL IVP SCH (08:00)
[2020-11-17] MEDS: Loratadine 10 MG TABLET PO SCH (08:35)
[2020-11-17] MEDS: Gabapentin 300 MG CAPSULE PO SCH ×3 (08:35→20:36)
[2020-11-17] MEDS: Magnesium Oxide 400 MG TABLET PO SCH ×2 (08:35→20:36)
[2020-11-17] MEDS: Metoprolol XL (24 HR) Succ 50 MG TAB.ER.24H PO SCH (08:36)
[2020-11-17] MEDS: Aspirin Enteric Coated 81 MG Tablet PO SCH (08:37)
[2020-11-17] MEDS: Insulin LISPRO 300 UNITS/3 ML VIAL SUBQ SCH ×4 (09:11→20:44)
[2020-11-17] MEDS ORDERED: Azithromycin 250 MG TABLET PO ONE (10:54)
[2020-11-17] MEDS: predniSONE 20 MG TABLET PO SCH (13:11)
[2020-11-18 01:11] LABS: Hemoglobin 9.7 g/dL (11.5-15.4); Mean Corpuscular HGB Conc 30.3 g/dL (31.6-35.5); Mean Corpuscular Volume 79.2 fL (83.0-100.0); Mean Platelet Volume 9.2 fL (9.4-12.4); Platelet Count 204 K/mcL (140-400); Red Blood Count 4.04 M/mcL (3.82-4.97); Red Cell Distribution Width 16.2 % (11.5-14.5)
[2020-11-18 01:33] LABS: BUN/Creatinine Ratio 25 (6-26); Blood Urea Nitrogen 27 mg/dL (8-23); Calcium 8.9 mg/dL (8.6-10.3); Carbon Dioxide 27 mEq/L (23-29); Chloride 102 mEq/L (98-107); Glucose 294 mg/dL (70-105); Osmolality,Calculated 304 (280-300); Potassium 4.1 mEq/L (3.5-5.1); Sodium 139 mEq/L (136-145); eGFR For African Americans > 60 (> 60); eGFR For Non-African Americans 51 (> 60)
[2020-11-18] MEDS: Levalbuterol Neb 1.25 MG/3 ML IH SCH ×4 (03:38→22:28)
[2020-11-18] MEDS: *HR* Rivaroxaban 10 MG TABLET PO SCH (06:06)
[2020-11-18] MEDS ORDERED: Furosemide 40 MG TABLET PO SCH (09:00)
[2020-11-18] MEDS: Insulin LISPRO 300 UNITS/3 ML VIAL SUBQ SCH ×4 (09:00→20:06)
[2020-11-18] MEDS ORDERED: Perflutren Lipid Microsphere 1.3 ML in 0.9 % Sodium Chloride 8.7 ML IVP PRN (09:11)
[2020-11-18] MEDS: Aspirin Enteric Coated 81 MG Tablet PO SCH (10:09)
[2020-11-18] MEDS: Metoprolol XL (24 HR) Succ 50 MG TAB.ER.24H PO SCH (10:10)
[2020-11-18] MEDS: Gabapentin 300 MG CAPSULE PO SCH ×3 (10:10→20:06)
[2020-11-18] MEDS: Magnesium Oxide 400 MG TABLET PO SCH ×2 (10:11→20:06)
[2020-11-18] MEDS: Loratadine 10 MG TABLET PO SCH (10:11)
[2020-11-18] MEDS: predniSONE 20 MG TABLET PO SCH (10:11)
[2020-11-18] MEDS: Nystatin POWDER 30 GM BOTTLE TP SCH ×3 (10:19→20:11)
[2020-11-19] MEDS: Levalbuterol Neb 1.25 MG/3 ML IH SCH ×4 (04:12→22:37)
[2020-11-19] MEDS: *HR* Rivaroxaban 10 MG TABLET PO SCH (05:22)
[2020-11-19] MEDS: Insulin LISPRO 300 UNITS/3 ML VIAL SUBQ SCH ×4 (07:44→20:29)
[2020-11-19] MEDS: Aspirin Enteric Coated 81 MG Tablet PO SCH (07:45)
[2020-11-19] MEDS: predniSONE 20 MG TABLET PO SCH (07:45)
[2020-11-19] MEDS: lisinopriL 20 MG TABLET PO SCH (07:45)
[2020-11-19] MEDS: Metoprolol XL (24 HR) Succ 50 MG TAB.ER.24H PO SCH (07:46)
[2020-11-19] MEDS: Gabapentin 300 MG CAPSULE PO SCH ×3 (07:46→20:29)
[2020-11-19] MEDS: Nystatin POWDER 30 GM BOTTLE TP SCH ×3 (07:46→20:29)
[2020-11-19] MEDS: Loratadine 10 MG TABLET PO SCH (07:46)
[2020-11-19] MEDS: Magnesium Oxide 400 MG TABLET PO SCH ×2 (07:46→20:28)
[2020-11-19 09:38] LABS: Basophils % 0.4 %; Eosinophils # 0.1 K/mcL (0.0-0.6); Eosinophils % 1.6 %; Hematocrit 32.5 % (35.3-44.9); Hemoglobin 9.9 g/dL (11.5-15.4); Immature Granulocytes % 1.5 % (0-4); Lymphocytes # 1.5 K/mcL (0.6-4.6); Lymphocytes % 19.8 %; Mean Corpuscular HGB Conc 30.5 g/dL (31.6-35.5); Mean Corpuscular Hemoglobin 24.6 pg (28.0-33.3); Mean Corpuscular Volume 80.6 fL (83.0-100.0); Mean Platelet Volume 9.5 fL (9.4-12.4); Monocytes # 0.5 K/mcL (0.0-1.3); Monocytes % 7.2 %; Neutrophils # 5.3 K/mcL (1.6-8.9); Platelet Count 235 K/mcL (140-400); Red Blood Count 4.03 M/mcL (3.82-4.97); Red Cell Distribution Width 16.2 % (11.5-14.5); Segmented Neutrophils % 69.5 %; White Blood Count 7.5 K/mcL (4.3-11.1)
[2020-11-19 09:57] LABS: BUN/Creatinine Ratio 29 (6-26); Blood Urea Nitrogen 29 mg/dL (8-23); Calcium 9.5 mg/dL (8.6-10.3); Carbon Dioxide 29 mEq/L (23-29); Chloride 102 mEq/L (98-107); Glucose 219 mg/dL (70-105); Osmolality,Calculated 299 (280-300); Potassium 4.3 mEq/L (3.5-5.1); Sodium 138 mEq/L (136-145); eGFR For African Americans > 60 (> 60); eGFR For Non-African Americans 56 (> 60)
[2020-11-19] MEDS ORDERED: Furosemide 40 MG TABLET PO SCH (16:15)
[2020-11-19] MEDS ORDERED: Furosemide 40 MG/4 ML VIAL IVP ONE (16:52)
[2020-11-20] MEDS: Levalbuterol Neb 1.25 MG/3 ML IH SCH ×4 (03:45→22:22)
[2020-11-20] MEDS: *HR* Rivaroxaban 10 MG TABLET PO SCH (05:44)
[2020-11-20] MEDS: Gabapentin 300 MG CAPSULE PO SCH ×3 (08:38→22:20)
[2020-11-20] MEDS: Aspirin Enteric Coated 81 MG Tablet PO SCH (08:38)
[2020-11-20] MEDS: lisinopriL 20 MG TABLET PO SCH (08:38)
[2020-11-20] MEDS: Loratadine 10 MG TABLET PO SCH (08:39)
[2020-11-20] MEDS: Magnesium Oxide 400 MG TABLET PO SCH ×2 (08:39→22:21)
[2020-11-20] MEDS: Metoprolol XL (24 HR) Succ 50 MG TAB.ER.24H PO SCH (08:39)
[2020-11-20] MEDS: Furosemide 40 MG TABLET PO SCH (08:40)
[2020-11-20] MEDS: Nystatin POWDER 30 GM BOTTLE TP SCH ×3 (08:40→22:28)
[2020-11-20] MEDS: predniSONE 20 MG TABLET PO SCH (08:40)
[2020-11-20] MEDS: Insulin LISPRO 300 UNITS/3 ML VIAL SUBQ SCH ×3 (08:41→17:27)
[2020-11-20] MEDS ORDERED: Ipratropium/Albuterol Neb 3 ML IH PRN (14:33)
[2020-11-20] MEDS ORDERED: Insulin LISPRO 300 UNITS/3 ML VIAL SUBQ STA (17:31)
[2020-11-20] MEDS ORDERED: Insulin LISPRO 300 UNITS/3 ML VIAL SUBQ SCH (21:00)
[2020-11-21] MEDS: Levalbuterol Neb 1.25 MG/3 ML IH SCH ×3 (03:58→15:34)
[2020-11-21 04:03] LABS: Basophils % 0.5 %; Eosinophils # 0.1 K/mcL (0.0-0.6); Eosinophils % 1.1 %; Hematocrit 31.1 % (35.3-44.9); Hemoglobin 9.3 g/dL (11.5-15.4); Immature Granulocytes % 1.2 % (0-4); Lymphocytes # 1.3 K/mcL (0.6-4.6); Lymphocytes % 20.2 %; Mean Corpuscular HGB Conc 29.9 g/dL (31.6-35.5); Mean Corpuscular Hemoglobin 23.4 pg (28.0-33.3); Mean Corpuscular Volume 78.1 fL (83.0-100.0); Mean Platelet Volume 9.4 fL (9.4-12.4); Monocytes # 0.5 K/mcL (0.0-1.3); Monocytes % 7.6 %; Neutrophils # 4.5 K/mcL (1.6-8.9); Platelet Count 208 K/mcL (140-400); Red Blood Count 3.98 M/mcL (3.82-4.97); Red Cell Distribution Width 16.1 % (11.5-14.5); Segmented Neutrophils % 69.4 %; White Blood Count 6.5 K/mcL (4.3-11.1)
[2020-11-21 04:21] LABS: BUN/Creatinine Ratio 34 (6-26); Blood Urea Nitrogen 33 mg/dL (8-23); Calcium 9.3 mg/dL (8.6-10.3); Carbon Dioxide 27 mEq/L (23-29); Chloride 100 mEq/L (98-107); Glucose 228 mg/dL (70-105); Osmolality,Calculated 300 (280-300); Potassium 3.9 mEq/L (3.5-5.1); Sodium 138 mEq/L (136-145); eGFR For African Americans > 60 (> 60); eGFR For Non-African Americans 58 (> 60)
[2020-11-21] MEDS: *HR* Rivaroxaban 10 MG TABLET PO SCH (06:25)
[2020-11-21] MEDS: Aspirin Enteric Coated 81 MG Tablet PO SCH (07:51)
[2020-11-21] MEDS: Furosemide 40 MG TABLET PO SCH (07:51)
[2020-11-21] MEDS: Gabapentin 300 MG CAPSULE PO SCH ×2 (07:51→14:06)
[2020-11-21] MEDS: predniSONE 20 MG TABLET PO SCH (07:51)
[2020-11-21] MEDS: lisinopriL 20 MG TABLET PO SCH (07:52)
[2020-11-21] MEDS: Magnesium Oxide 400 MG TABLET PO SCH (07:52)
[2020-11-21] MEDS: Loratadine 10 MG TABLET PO SCH (07:52)
[2020-11-21] MEDS: Metoprolol XL (24 HR) Succ 50 MG TAB.ER.24H PO SCH (07:52)
[2020-11-21] MEDS: Insulin LISPRO 300 UNITS/3 ML VIAL SUBQ SCH ×3 (07:53→16:58)
[2020-11-21] MEDS: Nystatin POWDER 30 GM BOTTLE TP SCH ×2 (09:40→14:06)
[2020-11-21 11:10] VITALS: BP 135/77
== END 2020-11-21 20:00 | disposition home health service (06) | DRG 140 ==
LOC: EMEROOARM 16:48 → 3NENU 16:48 → SUATTDRO 21:14 → 3NENU 22:08
PROVIDERS: ADMIT Student in an Organized Health Care Education/Training Program; ATTEND Student in an Organized Health Care Education/Training Program

== ENCOUNTER 2021-08-01 15:19 | Observation (INO) ==
[2021-08-01] MEDS ORDERED: Ondansetron 4 MG/2 ML VIAL IVP PRN (20:36)
[2021-08-01] MEDS ORDERED: Melatonin 3 MG TABLET PO PRN (20:36)
[2021-08-01] MEDS ORDERED: Acetaminophen 325 MG TABLET PO PRN (20:36)
[2021-08-01] MEDS ORDERED: Naloxone 0.4 MG/ML INJ IVP PRN (20:36)
[2021-08-01] MEDS ORDERED: Dextrose 4 GM Chewable Tablets PO PRN ×2 (20:39)
[2021-08-01] MEDS ORDERED: *HR* Dextrose 50 % in Water (Syg) 50 ML SYRINGE IVP PRN (20:39)
[2021-08-01] MEDS ORDERED: D5% in Water 1,000 ML IVC PRN (20:39)
[2021-08-02] MEDS: Insulin LISPRO 300 UNITS/3 ML VIAL SUBQ SCH ×4 (00:17→16:12)
[2021-08-02] MEDS ORDERED: *HR* HYDROcodone/Acet 5/325 mg TABLET PO ONE (01:05)
[2021-08-02 02:21] LABS: Basophils % 0.5 %; Eosinophils # 0.2 K/mcL (0.0-0.6); Eosinophils % 3.8 %; Hematocrit 29.3 % (35.3-44.9); Hemoglobin 9.1 g/dL (11.5-15.4); Immature Granulocytes % 0.4 % (0-4); Lymphocytes # 1.5 K/mcL (0.6-4.6); Lymphocytes % 27.5 %; Mean Corpuscular HGB Conc 31.1 g/dL (31.6-35.5); Mean Corpuscular Hemoglobin 24.9 pg (28.0-33.3); Mean Corpuscular Volume 80.1 fL (83.0-100.0); Mean Platelet Volume 9.8 fL (9.4-12.4); Monocytes # 0.4 K/mcL (0.0-1.3); Neutrophils # 3.4 K/mcL (1.6-8.9); Platelet Count 176 K/mcL (140-400); Red Blood Count 3.66 M/mcL (3.82-4.97); Segmented Neutrophils % 60.8 %; White Blood Count 5.6 K/mcL (4.3-11.1)
[2021-08-02 02:40] LABS: Calcium 8.8 mg/dL (8.6-10.3); Potassium 4.1 mEq/L (3.5-5.1)
[2021-08-02 10:28] LABS: Estimated Average Glucose 146 mg/dl; Hemoglobin A1C 6.7 %
[2021-08-02] MEDS: Gabapentin 300 MG CAPSULE PO SCH ×2 (14:49→19:48)
[2021-08-02] MEDS: Aspirin Enteric Coated 81 MG Tablet PO SCH (14:49)
[2021-08-02] MEDS ORDERED: *HR* Rivaroxaban 10 MG TABLET PO SCH (17:00)
[2021-08-02] MEDS: Magnesium Oxide 400 MG TABLET PO SCH (19:44)
[2021-08-03 03:23] LABS: Basophils % 0.6 %; Eosinophils # 0.3 K/mcL (0.0-0.6); Eosinophils % 5.6 %; Hematocrit 30.7 % (35.3-44.9); Hemoglobin 9.3 g/dL (11.5-15.4); Immature Granulocytes % 0.2 % (0-4); Lymphocytes # 1.5 K/mcL (0.6-4.6); Lymphocytes % 28.5 %; Mean Corpuscular HGB Conc 30.3 g/dL (31.6-35.5); Mean Corpuscular Hemoglobin 24.4 pg (28.0-33.3); Mean Corpuscular Volume 80.6 fL (83.0-100.0); Mean Platelet Volume 9.5 fL (9.4-12.4); Monocytes # 0.4 K/mcL (0.0-1.3); Neutrophils # 2.9 K/mcL (1.6-8.9); Platelet Count 177 K/mcL (140-400); Red Blood Count 3.81 M/mcL (3.82-4.97); Red Cell Distribution Width 16.9 % (11.5-14.5); Segmented Neutrophils % 57.1 %; White Blood Count 5.2 K/mcL (4.3-11.1)
[2021-08-03 03:39] LABS: Potassium 4.1 mEq/L (3.5-5.1)
[2021-08-03 06:49] VITALS: BP 104/58; PULSE 64; TEMP 98; O2SAT 97
[2021-08-03] MEDS: Insulin LISPRO 300 UNITS/3 ML VIAL SUBQ SCH (07:29)
[2021-08-03] MEDS ORDERED: Loratadine 10 MG TABLET PO SCH (09:00)
[2021-08-03] MEDS ORDERED: Cyanocobalamin (B-12) 1,000 MCG TABLET PO SCH (09:00)
[2021-08-03] MEDS ORDERED: Folic Acid 1 MG TABLET PO SCH (09:00)
[2021-08-03] MEDS ORDERED: Metoprolol XL (24 HR) Succ 50 MG TAB.ER.24H PO SCH (09:00)
[2021-08-03] MEDS: Gabapentin 300 MG CAPSULE PO SCH (09:04)
[2021-08-03] MEDS: Magnesium Oxide 400 MG TABLET PO SCH (09:04)
[2021-08-03] MEDS: Aspirin Enteric Coated 81 MG Tablet PO SCH (09:04)
== END 2021-08-03 12:07 | disposition home or self-care (01) ==
LOC: 3BNU → SUATTDRO 18:32
PROVIDERS: ADMIT Internal Medicine; ATTEND Internal Medicine

== ENCOUNTER 2021-10-10 21:42 | Observation (INO) ==
[2021-10-10 23:44] LABS: INR 1.4; Prothrombin Time 15.8 Seconds (9.4-12.1)
[2021-10-10 23:47] LABS: Activated Partial Thrombo Time 39.3 Seconds (26.0-36.0)
[2021-10-10 23:53] LABS: Basophils % 0.6 %; Eosinophils # 0.2 K/mcL (0.0-0.6); Eosinophils % 2.4 %; Hematocrit 32.6 % (35.3-44.9); Hemoglobin 10.5 g/dL (11.5-15.4); Immature Granulocytes % 0.8 % (0-4); Lymphocytes # 1.7 K/mcL (0.6-4.6); Lymphocytes % 23.8 %; Mean Corpuscular HGB Conc 32.2 g/dL (31.6-35.5); Mean Corpuscular Hemoglobin 26.2 pg (28.0-33.3); Mean Corpuscular Volume 81.3 fL (83.0-100.0); Mean Platelet Volume 9.8 fL (9.4-12.4); Monocytes # 0.5 K/mcL (0.0-1.3); Monocytes % 6.9 %; Neutrophils # 4.6 K/mcL (1.6-8.9); Platelet Count 220 K/mcL (140-400); Red Blood Count 4.01 M/mcL (3.82-4.97); Red Cell Distribution Width 15.5 % (11.5-14.5); Segmented Neutrophils % 65.5 %; White Blood Count 7.1 K/mcL (4.3-11.1)
[2021-10-10 23:58] LABS: Calcium 9.5 mg/dL (8.6-10.3); Potassium 4.8 mEq/L (3.5-5.1)
[2021-10-11 00:04] LABS: Troponin I 0.05 ng/mL (< 0.04)
[2021-10-11] MEDS ORDERED: Naloxone 0.4 MG/ML INJ IVP PRN (03:19)
[2021-10-11] MEDS ORDERED: Melatonin 3 MG TABLET PO PRN (03:19)
[2021-10-11 03:34] LABS: Bacteria,Urine Few per hpf (None-Few); Bilirubin,Urine Negative (Negative); Blood,Urine Negative (Negative); Clarity,Urine Clear (Clear); Color,Urine Light-Yellow (Yellow); Glucose,Urine (UA) Normal (Normal); Ketones,Urine Negative (Negative); Leukocyte Esterase,Urine Trace (Negative); Nitrite,Urine Negative (Negative); Protein,Urine Negative (Neg-Trace); RBC,Urine 0-3 per hpf (0-3); Specific Gravity,Urine 1.018 (1.010-1.025); Squamous Epithelial Cell,Urine Few per hpf (None-Few); Urobilinogen,Urine Normal (Normal)
[2021-10-11] MEDS ORDERED: D5% in Water 1,000 ML IVC PRN (03:39)
[2021-10-11] MEDS ORDERED: *HR* Dextrose 50 % in Water (Syg) 50 ML SYRINGE IVP PRN (03:39)
[2021-10-11] MEDS ORDERED: Dextrose 4 GM Chewable Tablets PO PRN ×2 (03:39)
[2021-10-11 04:02] LABS: Influenza A PCR Negative (Negative); Influenza B PCR Negative (Negative); Resp. Syncytial Virus PCR Negative (Negative)
[2021-10-11 04:03] LABS: SARS-CoV-2 by PCR (In House) Negative (Negative)
[2021-10-11 07:07] LABS: Albumin 3.7 g/dL (3.5-5.7); Albumin/Globulin Ratio 1.2 (1.1-2.2); Bilirubin,Total 0.3 mg/dL (0.3-1.0); Calcium 9.3 mg/dL (8.6-10.3); Globulin 3.2 g/dL (2.4-3.5); Magnesium 1.8 mg/dL (1.6-2.6); Phosphorous 3.2 mg/dL (2.7-4.5); Potassium 4.7 mEq/L (3.5-5.1); Total Protein 6.9 g/dL (6.4-8.9)
[2021-10-11] MEDS ORDERED: Furosemide 20 MG TABLET PO SCH (08:00)
[2021-10-11] MEDS ORDERED: Cyanocobalamin (B-12) 1,000 MCG TABLET PO SCH (09:00)
[2021-10-11] MEDS ORDERED: Metoprolol XL (24 HR) Succ 50 MG TAB.ER.24H PO SCH (09:00)
[2021-10-11] MEDS ORDERED: Aspirin Enteric Coated 81 MG Tablet PO SCH (09:00)
[2021-10-11] MEDS ORDERED: Folic Acid 1 MG TABLET PO SCH (09:00)
[2021-10-11] MEDS: Insulin LISPRO 300 UNITS/3 ML VIAL SUBQ SCH ×2 (10:45→11:31)
[2021-10-11 15:59] VITALS: BP 144/73; PULSE 79; TEMP 97.7; O2SAT 96
[2021-10-11] MEDS ORDERED: *HR* Rivaroxaban 10 MG TABLET PO SCH (17:00)
[2021-10-11] MEDS ORDERED: Insulin LISPRO 300 UNITS/3 ML VIAL SUBQ SCH (21:00)
== END 2021-10-11 17:18 | disposition home or self-care (01) ==
LOC: 3BNU 21:42 → EMEROOARM 21:42 → SUATTDRO 10-11 03:44 → 3BNU 10-11 04:15
PROVIDERS: ADMIT Internal Medicine; ATTEND Registered Nurse